=== PATIENT | female | born 1955 | race Caucasian/White ===

== ENCOUNTER 2022-12-12 05:33 | Day surgery (SDC) | payer OTHER ==
[2022-12-08 12:15] VITALS: BMI 32.1
[2022-12-12 09:54] VITALS: BP 140/48; PULSE 51; RESP 15; TEMP 98
== END 2022-12-12 10:06 | disposition home or self-care (01) ==
LOC: JASU-ENDO 05:33
PROVIDERS: ATTEND Internal Medicine Gastroenterology
PROC: 0DBK8ZX Excision of Ascending Colon, Via Natural or Artificial Opening Endoscopic, Diagnostic (ICD-10-PCS; principal; 2022-12-12 09:00)
DX: Z12.11 Encounter for screening for malignant neoplasm of colon (principal); D12.2 Benign neoplasm of ascending colon; K57.30 Diverticulosis of large intestine without perforation or abscess without bleeding; Z86.010 Personal history of colon polyps
CPT/HCPCS: 88305-TC

== ENCOUNTER 2023-11-06 04:30 | Day surgery (SDC) | payer OTHER ==
[2023-11-03 14:17] VITALS: BMI 33.6
[2023-11-06 09:27] VITALS: RESP 16
[2023-11-06] MEDS ORDERED: FENTANYL CITRATE/PF 50 MCG/ML VIAL ONE ×2 (12:54→13:24)
[2023-11-06] MEDS ORDERED: MIDAZOLAM HCL 2 MG/2 ML SINGLE DOSE VIAL ONE (12:54)
[2023-11-06] MEDS ORDERED: PROPOFOL 20 ML ONE ×2 (12:55→13:24)
[2023-11-06] MEDS ORDERED: BUPIVACAINE HCL/PF 0.5% (5MG/ML) 10 ML VIAL ONE (12:56)
[2023-11-06] MEDS: ceFAZolin SODIUM 1 GM VIAL IVPB ONE (13:15)
[2023-11-06] MEDS ORDERED: LIDOCAINE 1%/EPI 1:100000 (20 ML MULTI DOSE VIAL) ONE (13:22)
[2023-11-06] MEDS: LIDOCAINE 1%/EPI 1:100000 (20 ML MULTI DOSE VIAL) IJ ONE (13:27)
[2023-11-06 14:08] VITALS: TEMP 97
[2023-11-06 15:40] VITALS: BP 120/68; PULSE 56
== END 2023-11-06 15:42 | disposition home or self-care (01) ==
LOC: JASU-SURG 04:30
PROVIDERS: ATTEND Obstetrics & Gynecology
PROC: 0UBM0ZZ Excision of Vulva, Open Approach (ICD-10-PCS; principal; 2023-11-06 11:30)
DX: D28.0 Benign neoplasm of vulva (principal)
CPT/HCPCS: 88304-TC